=== PATIENT | female | born 1950 | race Two or more races ===

== ENCOUNTER 2025-04-01 01:15 | Emergency (ER) | payer MEDICARE, MEDICAID, SELFPAY ==
--- NOTE | 2025-04-01 01:20 | PD.EDDIZZY ---
ED Dizzyness RME/HPI General Chief Complaint: Dizziness Stated Complaint: DIZZINES, NAUSEA/VOMITING Time Seen by Provider: 04/01/25 01:38 Arrival date/time: 04/01/25 01:15 RME / HPI RME / HPI Narrative: This section includes all my notes and documentations, including HPI, PE, and ED course. Artur Quinn MD HPI: 74yo female BIBA from home here with complaints of dizziness, nausea, and vomiting for the last couple of hours. Patient describes her dizziness as spinning in nature. She does have shortness of breath. No fevers or abdominal pain. No history of similar symptoms. No other complaints reported. ROS: All negative except as documented in HPI. Physical Exam: General: Alert and oriented. Appearance of malaise noted. Eyes: Conjunctivae and lids clear. ENT: No nasal congestion. Pharynx normal. TM normal bilaterally. Neck: Supple. No carotid bruit. No JVD. Heart: RRR. Lungs: No respiratory distress. Good air movement. No rhonchi, wheezing, rales. Abdomen: Soft and nontender. Normal bowel sounds. No distension. No rebound or guarding. Back: No CVA tenderness. Skin: Warm and dry. Neuro: Alert and oriented X 3. Cranial nerves II to XII grossly normal. No peripheral motor deficits. I reviewed all diagnostic test results. My review of the CT head report is NAD. My review of the CT angio chest report is pneumonia. My review of the bilateral lower extremity venous doppler US report is right leg DVT. Blood tests remarkable for Potassium 3.2, Magnesium 1.5, BNP 269. UA remarkable for positive leukocyte esterase and 6 WBCs. COVID/Influenza negative. At this point, diagnoses include Vertigo, Pneumonia, Hypokalemia, and Hypomagnesemia. Treatment here included Scopolamine patch, Potassium, Meclizine, Zofran, NS, Magnesium, Rocephin, and Azithromycin. Significant improvement noted. Recommended outpatient management. Based on my best medical judgment, made decision no further evaluation or treatment indicated at this time. Patient understands and agrees to the discharge instructions customized and printed, see below. Discharge instructions from Dr. Quinn: ? After extensive evaluation, there is no life-threatening condition. Such as stroke or brain tumor or heart attack. -- Your diagnoses include Vertigo, Pneumonia, low potassium level, and low magnesium level. -- Your severe dizziness and vomiting is due to vertigo. This is an inner ear problem that makes you feel like you are drunk or seasick. See attached handout. -- Use scopolamine patch and/or meclizine for your severe symptoms. -- And Zofran for nausea/vomiting. And increase oral fluid to prevent dehydration. Maintain clear urine. If dark or yellow, increase oral fluid. -- And do everything very slowly. Including moving your head. And when you sit up or stand up, wait a minute before you progress. -- For pneumonia, take cefdinir and Zithromax as prescribed. -- For low potassium level, eat a banana daily. -- For low magnesium level, increase food rich in magnesium. Such as green and leafy vegetables and peanuts and cashews and almonds. -- See your private doctor on 04/05/2025 for recheck and further care. Ask to review all test results and official radiology reports, to make sure you receive all necessary follow-ups and monitoring. Ask for help until you are completely better. -- Seek immediate medical care with worsening or with any concerns. Artur Quinn MD Related Data Home Medications ?Medication ?Instructions ?Recorded ?Confirmed celecoxib PO 09/05/19 09/05/19 olmesartan PO 09/05/19 09/05/19 Previous Rx's ?Medication ?Instructions ?Recorded azithromycin 500 mg tablet See Rx Instructions PO .COMPLEX #3 09/05/19 tabs benzonatate 200 mg capsule 200 mg PO BID PRN cough #30 caps 09/05/19 ipratropium bromide 21 mcg (0.03 2 spray intranasal BID #30 mL 09/05/19 %) nasal spray loratadine 10 mg tablet (Allergy 10 mg PO QDAY allergy symptoms #30 09/05/19 Relief (loratadine)) tabs azithromycin 500 mg tablet 500 mg PO QDAY 3 days #3 tabs 04/01/25 (Zithromax TRI-CHICA) cefdinir 300 mg capsule 300 mg PO BID #14 caps 04/01/25 meclizine 25 mg tablet 25 mg PO BID PRN dizziness #20 tabs 04/01/25 ondansetron 4 mg disintegrating 4 mg PO TID PRN nausea and 04/01/25 tablet vomiting 30 days #10 tabs scopolamine base 1 mg over 3 days 1 mg topical .q72 hours PRN 04/01/25 transdermal patch (Transderm-Scop) dizziness or vertigo #4 ea Allergies Allergy/AdvReac Type Severity Reaction Status Date / Time morphine Allergy Intermediate Rash Verified 04/01/25 06:00 Review of Systems Review of Systems Systems Reviewed: All systems reviewed, normal except as documented Past Medical History Past Medical History NEUROLOGIC: Negative Neurological Disorders or Seizures CARDIAC: Positive Cardiac Disorders, Hypercholesterolemia, Edema and Hypertension; Negative Congestive Heart Failure RESPIRATORY: Negative Chronic Obstructive Pulmonary Disease (COPD) GASTROINTESTINAL: Negative Gastrointestinal Disorders GENITOURINARY: Negative Genitourinary Disorders or Renal Disease REPRODUCTIVE: Positive Previous Pregnancies MUSCULOSKELETAL: Positive Arthritis; Negative Musculoskeletal Disorders ENT: Positive Cataracts ENDOCRINE: Positive Endocrine Disorders and Diabetes Mellitus Type 2; Negative Diabetes Mellitus Type 1 HEMATOLOGIC: Positive Clotting Problems; Negative Blood Disorders OTHER HISTORY: Negative Autoimmune Disease, Blood Transfusions or Anesthesia Reactions Family History FAMILY HISTORY: Positive Family Respiratory Disorders, Family Cardiac Disorders and Family Cancer; Negative Family Psychiatric Problems, Family Gastrointestinal Problems, Family Surgery or Family Anesthesia Reaction Surgical History SURGICAL: Positive Hysterectomy; Negative Abdominal Surgery or Joint Replacement Social History SMOKING STATUS: Never smoker ED Exam Narrative Physical exam: As noted in HPI. Course Quality Measures none Orders Category Date Time Status Bedside COVID-19 Antigen Test NOW Care 04/01/25 01:23 Completed Bedside Influenza A&B Antigen Test NOW Care 04/01/25 01:[address] Screening NOW Care 04/01/25 01:25 Completed Saline [Insert IV] NOW Care 04/01/25 01:23 Completed Straight [In and Out Catheter] X1 Care 04/01/25 01:[address] angio chest Stat Exams 04/01/25 01:[address] head/brain wo con Stat Exams 04/01/25 01:25 Completed US venous doppler LE BI Stat Exams 04/01/25 01:25 Completed Amylase Stat Lab 04/01/25 01:32 Completed BNP [B-Type Natriuretic Peptide] Stat Lab 04/01/25 01:32 Completed Bilirubin,Direct Stat Lab 04/01/25 01:32 Completed CBC Stat Lab 04/01/25 01:32 Completed CMP [Comprehensive Metabolic Panel] Stat Lab 04/01/25 01:32 Completed D-Dimer Stat Lab 04/01/25 01:32 Completed Free T4 (Free Thyroxine) Stat Lab 04/01/25 01:32 Completed Lipase Stat Lab 04/01/25 01:32 Completed Magnesium Stat Lab 04/01/25 01:32 Completed PT [Prothrombin Time with INR] Stat Lab 04/01/25 01:32 Completed PTT [Partial Thromboplastin Time] Stat Lab 04/01/25 01:32 Completed TSH [Thyroid Stimulating Hormone] Stat Lab 04/01/25 01:32 Completed Troponin I Stat Lab 04/01/25 01:32 Completed UA, C/S IF [Urinalysis, C/S if Indicated] Stat Lab 04/01/25 01:45 Completed Azithromycin Po [Zithromax PO] Med 04/01/25 04:47 Discontinued 500 mg PO X1 ONE KCL 10% Liq UDC 15 ML Med 04/01/25 02:29 Discontinued 40 meq PO X1 ONE Magnesium Sulfate 2 GM Ivpb [Magnesium Sulfate Ivpb] Med 04/01/25 02:29 Discontinued 2 gm in 50 ml IV X1 Meclizine HCl [Antivert] Med 04/01/25 01:23 Discontinued 25 mg PO X1 ONE Ondansetron Inj [Zofran Inj] Med 04/01/25 01:23 Discontinued 4 mg IVP X1 ONE Scopolamine [Transderm-Scop Patch] Med 04/01/25 01:23 Discontinued 1 mg TOP X1 ONE Sodium Chloride 0.9% 1000 ml [Ns] 1,000 ml Med 04/01/25 01:23 Discontinued IV 100 mls/hr cefTRIAXone/D5w 1gm IV premix [Rocephin/D5w 1gm IV Med 04/01/25 04:47 Discontinued premix] 1 gm in 50 ml IV X1 Vital Signs Vital signs: Vital Signs Temperature 97.7 F 04/01/25 01:25 Pulse Rate 77 04/01/25 01:25 Respiratory Rate 22 H 04/01/25 01:25 Blood Pressure 166/83 H 04/01/25 01:25 Pulse Oximetry (%) 100 04/01/25 01:25 Oxygen Delivery Method Room Air 04/01/25 01:25 Dizziness MDM Narrative MDM Narrative:: 74yo female BIBA from home here with complaints of dizziness, nausea, and vomiting for the last couple of hours. Patient describes her dizziness as spinning in nature. She does have shortness of breath. No fevers or abdominal pain. No history of similar symptoms. No other complaints reported. Patient data External records reviewed:: [facility] previous records (Per chart review, patient was seen here on 05/25/24 for DVT.) and EMS form Clinical information provided by:: patient and EMS Social determinants that could affect healthcare access:: none Patient has the following chronic illnesses:: DM, HTN, HLD, DVT on Eliquis How is presenting disease/condition affected by chronic disease/condition?: uneffected by Evaluation data The following diagnostics were reviewed and interpreted by me:: lab results and radiology exam(s) Lab and/or radiology exams considered but not ordered:: none Interpretation Summary: I reviewed all diagnostic test results. My review of the CT head report is NAD. My review of the CT angio chest report is pneumonia. My review of the bilateral lower extremity venous doppler US report is right leg DVT. Blood tests remarkable for Potassium 3.2, Magnesium 1.5, BNP 269. UA remarkable for positive leukocyte esterase and 6 WBCs. COVID/Influenza negative. Medications / Prescriptions Medications or Prescriptions considered but not ordered:: none Medication administrations:: Medication Administration History Discontinued Medications Azithromycin (Azithromycin 250 Mg Tablet) 500 mg PO X1 ONE Stop: 04/01/25 04:48 Last Admin: 04/01/25 05:16 Dose: 500 mg Documented By: NAI Sodium Chloride (Ns) 1,000 mls @ 100 mls/hr IV .Q10H ONE Stop: 04/01/25 11:22 Last Infusion: 04/01/25 06:00 Dose: Infused Documented By: Admin: 04/01/25 01:45 Dose: 100 mls/hr Documented By: NAI Magnesium Sulfate (Magnesium Sulfate Ivpb) 2 gm in 50 mls @ 25 mls/hr IV X1 ONE Stop: 04/01/25 04:28 Last Infusion: 04/01/25 05:11 Dose: Infused Documented By: Admin: 04/01/25 03:05 Dose: 25 mls/hr Documented By: NAI Ceftriaxone Sodium/Dextrose (Rocephin/D5w 1gm Iv Premix) 1 gm in 50 mls @ 100 mls/hr IV X1 ONE Stop: 04/01/25 05:16 Last Infusion: 04/01/25 05:52 Dose: Infused Documented By: Admin: 04/01/25 05:16 Dose: 100 mls/hr Documented By: NAI Meclizine HCl (Meclizine Hcl 25 Mg Tablet) 25 mg PO X1 ONE Stop: 04/01/25 01:24 Last Admin: 04/01/25 01:41 Dose: 25 mg Documented By: EE Ondansetron HCl (Ondansetron Inj 2 Mg/Ml Inj 2 Ml) 4 mg IVP X1 ONE; Protocol Stop: 04/01/25 01:24 Last Admin: 04/01/25 01:42 Dose: 4 mg Documented By: EE Potassium Chloride (Potassium Chloride 10% 20 Meq/15 Ml Udc) 40 meq PO X1 ONE Stop: 04/01/25 02:30 Last Admin: 04/01/25 03:05 Dose: 40 meq Documented By: EE Scopolamine (Scopolamine 1 Mg Tdsy) 1 mg TOP X1 ONE Stop: 04/01/25 01:24 Last Admin: 04/01/25 01:41 Dose: 1 mg Documented By: EE Scopolamine, Potassium, Meclizine, Zofran, NS, Magnesium, Rocephin, Azithromycin Consultations Consultation(s) initiated? (list below): No Diagnosis Dizziness Differential Diagnosis: adverse reaction to drug, benign paroxysmal positional vertigo, orthostatic hypotension, vertebral basilar insufficiency, cerebrovascular accident, acute vestibular neuronitis and transient cerebral ischemia Most likely diagnosis given after review of the tests above:: Vertigo, Pneumonia, Hypokalemia, Hypomagnesemia Admission Indicated Admission indicated?: not indicated Explain why admission is indicated or not indicated:: With significant improvement and no condition needing emergent intervention, there was no indication for admission. Admission Request Was there a request for admission?: No Disposition Plan Disposition Plan: Discharge Discharge Attestation Discharge Attestation: The patient and all family members were given an opportunity to ask questions and understood the discharge instructions. Discharge instructions specifically effects, indications for sooner follow up or return to the emergency department, and the expected course of current diagnosis. Patient condition: Stable Discharge Plan Plan Patient Disposition: HOME (Self Care) Prescriptions/Referrals Prescriptions/Med Rec: New meclizine 25 mg tablet 25 mg PO BID PRN (Reason: dizziness) Qty: 20 0RF scopolamine base [Transderm-Scop] 1 mg over 3 days patch 3 day 1 mg topical .q72 hours PRN (Reason: dizziness or vertigo) Qty: 4 0RF ondansetron 4 mg tablet,disintegrating 4 mg PO TID PRN (Reason: nausea and vomiting) 30 Days Qty: 10 0RF cefdinir 300 mg capsule 300 mg PO BID Qty: 14 0RF azithromycin [Zithromax TRI-CHICA] 500 mg tablet 500 mg PO QDAY 3 Days Qty: 3 0RF No Action celecoxib PO olmesartan PO benzonatate 200 mg capsule 200 mg PO BID PRN (Reason: cough) Qty: 30 0RF ipratropium bromide 0.03 % spray,non-aerosol 2 spray INTRANASAL BID Qty: 30 0RF Rx Instructions: administer into each nostril; wait 30 seconds between sprays loratadine [Allergy Relief (loratadine)] 10 mg tablet 10 mg PO QDAY Qty: 30 3RF azithromycin 500 mg tablet See Rx Instructions PO .COMPLEX Qty: 3 0RF Rx Instructions: take 500 mg once daily for 3 days PO Referrals: Lawson Kim [Primary Care Provider] - In 1 week Problem List Clinical Impression: Vertigo, Pneumonia, Hypokalemia, Hypomagnesemia Patient/Caregiver Discharge Instructions Discharge Activity: activity as tolerated Education Materials: Magnesium (Blood), ED Hypokalemia, ED Pneumonia (Adult), ED Vertigo, Unspecified Additional Instructions: Discharge instructions from Dr. Quinn: ? After extensive evaluation, there is no life-threatening condition.? Such as stroke or brain tumor or heart attack. -- Your diagnoses include Vertigo, Pneumonia, low potassium level, and low magnesium level. -- Your severe dizziness and vomiting is due to vertigo.? This is an inner ear problem that makes you feel like you are drunk or seasick.? See attached handout. -- Use scopolamine patch and/or meclizine for your severe symptoms. -- And Zofran for nausea/vomiting.? And increase oral fluid to prevent dehydration.? Maintain clear urine.? If dark or yellow, increase oral fluid. -- And do everything very slowly.? Including moving your head.? And when you sit up or stand up, wait a minute before you progress.? -- For pneumonia, take cefdinir and Zithromax as prescribed. -- For low potassium level, eat a banana daily. -- For low magnesium level, increase food rich in magnesium. Such as green and leafy vegetables and peanuts and cashews and almonds. -- See your private doctor on 04/05/2025 for recheck and further care. Ask to review all test results and official radiology reports, to make sure you receive all necessary follow-ups and monitoring. Ask for help until you are completely better. -- Seek immediate medical care with worsening or with any concerns. Instrucciones de brayan del Dr. Quinn: ? Tras landen evaluaci?n exhaustiva, no se observa ninguna afecci?n potencialmente mortal, isabel un derrame cerebral, un tumor cerebral o un ataque card?aco. -- Tri diagn?sticos incluyen v?rtigo, neumon?a, niveles bajos de potasio y niveles bajos de magnesio. -- Tri mareos y v?mitos intensos se deben al v?rtigo. Se trata de un problema del o?do interno que le produce landen sensaci?n de ebriedad o mareo. Consulte el folleto adjunto. -- Use un parche de escopolamina o meclizina para los s?ntomas graves. -- Y Zofran para las n?useas y los v?mitos. Aumente la ingesta de l?quidos para prevenir la deshidrataci?n. Mantenga la orina stas. Si es oscura o amarilla, aumente la ingesta de l?quidos. -- Akira todo muy lentamente, incluyendo vice president of sales la sheeba. Al incorporarse o levantarse, espere un minuto antes de que se produzca landen progresi?n. -- Para la neumon?a, tome cefdinir y Zithromax seg?n lo prescrito. -- Si tiene un nivel bajo de potasio, coma un pl?nima al d?a. -- Si tiene un nivel bajo de magnesio, aumente el consumo de alimentos ricos en magnesio, isabel verduras de hoja roger, cacahuetes, anacardos y almendras. -- Consulte a mahmood m?dico el 05/04/2025 para landen nueva revisi?n y tratamiento. Solicite la revisi?n de todos los resultados de las pruebas y los informes radiol?gicos oficiales para asegurarse de recibir todos los controles y monitoreos necesarios. Solicite ayuda hasta que se recupere por completo. -- Busque atenci?n m?dica inmediata si mahmood condici?n empeora o tiene alguna inquietud. Print Language: Upper Sorbian Stand Alone Forms: [employer] Award Info., Patient Portal Info Letter
[2025-04-01 01:25] VITALS: BP 166/83; PULSE 64; PULSE 77; RESP 22; TEMP 36.5; O2SAT 100; O2SAT 98; BMI 30.7
--- NOTE | 2025-04-01 01:25 | XR_ITS ---
Examination: Venous duplex lower extremity sonogram, bilateral. Date and time of exam: April 01, 2025, 0151 hours INDICATIONS: Leg pain and swelling this week, history positive DVT legs Technique: Multiple sonographic images of the deep venous system have been obtained. B-mode/2-D grayscale imaging of vascular structures and Doppler spectral analysis (waveforms) and color performed Both legs are examined. Findings: Positive for deep vein thrombus involving the right proximal mid and distal superficial femoral vein, right peroneal vein Left lower extremity unremarkable IMPRESSION: Positive for significant deep vein thrombosis right lower extremity
--- NOTE | 2025-04-01 01:25 | XR_ITS ---
Examination: CTA chest with intravenous contrast 2-D reconstructions 3-D reconstructions, vascular Date and time of exam: April 01, 2025, 0336 hours INDICATIONS: Chest pain and dizziness nausea vomiting shortness of breath today CTDI: vol (mGy) 14.2 DLP: (mGycm) 552 Technique: Multiple axial sections of the thorax have been obtained. 3 mm slice thickness, from below the hemidiaphragms to above the apices of the lungs. Mediastinal and lung density settings have been obtained. 2-D sagittal and coronal reconstructions. 3-D angiographic renderings, 3-D volume renderings, 3D post processing, vascular maximum intensity projections obtained. Contrast administered is 100 cc Isovue 370 intravenous. Low dose protocols were performed. One or more of the following dose reduction techniques were used; automated exposure control, adjustment of the mA and/or KV according to patient size, use of iterative reconstruction technique. Findings: Thoracic aortic calcification no aneurysmal dilatation Pulmonary artery segments are not enlarged No pulmonary artery emboli At least 10 bilateral subcentimeter pulmonary nodules Atelectasis in the lower lung zones The liver is irregular in contour No definite gallstones No pancreatic mass Kidneys partially visualized and no hydronephrosis IMPRESSION: Negative for pulmonary artery emboli Multiple subcentimeter pulmonary nodules, recommend 3-6 month follow-up CT chest without contrast to exclude early pulmonary nodular metastatic disease Primary hepatocellular disease versus cirrhosis
--- NOTE | 2025-04-01 01:25 | XR_ITS ---
Examination: CT brain head without contrast. 2-D sagittal coronal reconstructions Date and time of exam:April 01, 2025 0334 hours INDICATIONS: Onset headache dizziness nausea vomiting today CTDI: vol (mGy):47.5 DLP: (mGycm):926 Technique: Multiple CT axial sections of the brain have been obtained, 5 mm slice thickness. Contrast has not been administered. 2-D sagittal, coronal reconstructions have been obtained Low dose protocols were performed. One or more of the following dose reduction techniques were used; automated exposure control, adjustment of the mA and/or KV according to patient size, use of iterative reconstruction technique. Findings: No significant ventricular enlargement. Intra-axial or extra-axial hemorrhage density is not seen. No mass effect or midline shift Basal cisterns are not remarkable. Fourth ventricle is midline. Cranial vault intact. Impression: Negative for acute hemorrhage, mass effect or midline shift
[2025-04-01] MEDS: SCOPOLAMINE 1 MG TDSY TOP (01:41)
[2025-04-01] MEDS: MECLIZINE HCL 25 MG TABLET PO (01:41)
[2025-04-01] MEDS: ONDANSETRON INJ 2 MG/ML INJ 2 ML 4 MG IVP (01:42)
[2025-04-01 01:43] LABS: Basophils # (Auto) 0.1 Thou/mm3 (0.0-0.2); Basophils % (Auto) 1 % (0-2.5); Eosinophils # (Auto) 0.1 Thou/mm3 (0.0-0.5); Eosinophils % (Auto) 1 % (0-10); Hematocrit 37.8 % (36.0-46.0); Hemoglobin 13.4 g/dL (12.0-16.0); Immature Granulocytes Auto 0.05 Thou/mm3 (0.00-0.00); Lymphocytes # (Auto) 1.5 Thou/mm3 (1.0-4.8); Lymphocytes % (Auto) 18 % (10-50); Mean Corpuscular HGB Conc 35.4 g/dl (31.0-37.0); Mean Corpuscular Hemoglobin 30.5 pg (25.0-35.0); Mean Corpuscular Volume 86 fL (80-100); Monocytes # (Auto) 0.4 Thou/mm3 (0.0-0.8); Monocytes % (Auto) 5 % (0-12); Neutrophils # (Auto) 6.1 Thou/mm3 (1.8-7.7); Neutrophils % (Auto) 75 % (37-80); Nucleated Red Blood Cell # 0.00 Thou/mm3 (0.00-0.00); Nucleated Red Blood Cell % 0 /100 WBC (0); Platelet Count 169 Thou/mm3 (140-440); RDW Standard Deviation 39.4 fL (36.4-46.3); Red Blood Count 4.39 Miln/mm3 (4.00-5.20); White Blood Count 8.1 Thou/mm3 (3.6-11.0)
[2025-04-01] MEDS: SODIUM CHLORIDE 0.9% 1000 ML 1,000 ML 100 ML IV (01:45)
[2025-04-01 01:51] LABS: Collection Type, Urine Clean Catch; RBC,Urine 0 /hpf (0-3)
[2025-04-01 01:56] LABS: INR 1.1 (0.9-1.3); Partial Thromboplastin Time 27.9 Seconds (22.0-36.0); Prothrombin Time 12.0 Seconds (9.0-12.2)
[2025-04-01 01:59] LABS: B-Type Natriuretic Peptide 269 pg/mL (0-100)
[2025-04-01 02:02] LABS: Alanine Aminotransferase 58 U/L (10-49); Albumin, Serum 4.3 gm/dL (3.4-4.8); Albumin/Globulin Ratio 1.3 (1.2-2.2); Alkaline Phosphatase 43 U/L (46-116); Amylase 53 U/L (30-118); Anion Gap 13 (7-16); Aspartate Amino Transferase 67 U/L (0-34); BUN/Creatinine Ratio 19 Ratio (12-20); Bilirubin,Direct 0.1 mg/dL (0.0-0.3); Bilirubin,Total 0.5 mg/dL (0.3-1.2); Blood Urea Nitrogen 15 mg/dL (9-23); Calcium 8.9 mg/dL (8.3-10.6); Calcium (Corrected) 8.9 mg/dL (8.5-10.1); Carbon Dioxide 21.0 mMol/L (20.0-31.0); Chloride 108 mMol/L (98-107); Creatinine (Component) 0.8 mg/dL (0.6-1.3); Estimated Creatinine Clearance 57.2 mL/min (>60); Free T4 (Free Thyroxine) 1.17 ng/dL (0.89-1.76); Globulin 3.3 gm/dL (2.3-3.5); Glucose 160 mg/dL (74-106); Lipase 49 U/L (12-53); Magnesium 1.5 mg/dL (1.6-2.6); Osmolality,Calculated 286 (275-295); Potassium 3.2 mMol/L (3.4-5.1); Sodium 142 mMol/L (136-145); Thyroid Stimulating Hormone 1.08 uIU/mL (0.55-4.78); Total Protein 7.6 gm/dL (5.7-8.2); Troponin I < 0.020 ng/mL (0.0-0.045); eGFR > 60 See Note
[2025-04-01 02:04] LABS: D-Dimer < 250 ng/mL (<600)
[2025-04-01 02:11] LABS: Bilirubin,Urine Negative (Negative); Blood,Urine Negative (Negative); Clarity,Urine Turbid (Clear/Hazy); Color,Urine Lt-Yellow (Lt Yel-Yel); Culture Indicated,Urine Not Indicated; Glucose, Urine Negative (Negative); Ketones,Urine 1+ (Negative); Leukocyte Esterase,Urine Positive (Negative); Nitrite,Urine Negative (Negative); PH,Urine 7.5 (5.0-7.0); Protein,Urine 1+ (Neg - Trace); Specific Gravity,Urine 1.022 (1.001-1.035); Squamous Epithelial Cell,Urine 1 /hpf (0-5); Urobilinogen,Urine Negative mg/dL (0.0-1.0); WBC,Urine 6 /hpf (0-5)
--- NOTE | 2025-04-01 02:43 | PRELIM_ITS ---
Bilateral lower extremity venous Doppler ultrasound with wave Doppler spectral analysis. April 01, 2025 0151 hours Clinical history: Edema high dimer Technique: Duplex scan of the bilateral lower extremity deep venous systems was performed utilizing 2D grayscale imaging, Doppler spectral analysis and color flow Doppler and with compression. Comparison: None. Findings: Beltre scale, color flow and spectral Doppler evaluation of the lower extremity deep veins was performed. Right: Occlusive thrombus in the superficial femoral vein. The other veins are patent. Left: The common femoral, superficial femoral and popliteal veins are patent and compressible. Normal respiratory variation is noted. There is no evidence of occlusive or nonocclusive thrombus. The great saphenous vein is patent at the level of the saphenofemoral junction. Impression: Occlusive thrombus in the right superficial femoral vein. Discussion Details: Results verbally communicated to : Dr. Quinn at 02:31 AM 04/01/2025 Report Electronically Signed By: Mert Sánchez 04/01/2025 2:42:51 AM [EST]
[2025-04-01] MEDS: Magnesium Sulfate 2 GM Ivpb 2 GM/50 ML BAG IV (03:05)
[2025-04-01] MEDS: POTASSIUM CHLORIDE 10% 20 MEQ/15 ML UDC 40 MEQ PO (03:05)
[2025-04-01 03:10] VITALS: BP 150/76; PULSE 77; RESP 18; O2SAT 98
--- NOTE | 2025-04-01 03:54 | PRELIM_ITS ---
CT scan of the head without intravenous contrast (axial sections with sagittal and coronal reformats). April 01, 2025 0334 hours Clinical History: Dizziness Comparison: None Findings: There is no intracranial hemorrhage, extra-axial collection, mass, mass-effect or midline shift. There is good mittal-white differentiation. There is no CT evidence of acute large vascular territorial infarct. Ventricles are not enlarged or effaced. Visualized paranasal sinuses and tympanomastoid cavities are clear. The bony calvarium is intact. Impression: No intracranial hemorrhage, mass-effect or midline shift. No CT evidence of acute large vascular territorial infarct. Report Electronically Signed By: Rod Grimes 04/01/2025 3:54:00 AM [EST]
--- NOTE | 2025-04-01 04:34 | PRELIM_ITS ---
CT angiogram of the chest with intravenous contrast (axial sections with sagittal and coronal reformats) April 01, 2025 at 0336 hours Clinical History: SOB. Technique:Helical axial sections with sagittal and coronal reformats of the chest were obtained with intravenous contrast. Iterative reconstruction technique was employed to reduce patient radiation exposure. 3D/MIP reconstructed images were also provided. Comparison: No prior study is available for comparison. Findings: There is no filling defect within the pulmonary artery divisions to suggest pulmonary thromboembolism. The mediastinum demonstrates no evidence of mass or lymphadenopathy. The thoracic aorta is unremarkable. There is no pericardial effusion. A few subcentimeter lung nodules, the largest in the right lower lobe measures 0.8 cm. Mild bilateral lung consolidation, atelectasis versus pneumonia. No evidence of pleural effusion or pneumothorax. Degenerative changes of the imaged portions of the spine. Chronic multilevel disc disease. No acute fractures. Vascular calcifications. Irregular liver margins. Impression: 1. No CT evidence of pulmonary thromboembolism. 2. Mild bilateral lung consolidation, atelectasis versus pneumonia. 3. Cirrhosis. 4. Indeterminate subcentimeter lung nodules. Follow-up in 3 months is recommended. Report Electronically Signed By: Mert Sánchez 04/01/2025 4:33:46 AM [EST]
[2025-04-01] MEDS: AZITHROMYCIN 250 MG TABLET 500 MG PO (05:16)
[2025-04-01] MEDS: cefTRIAXone/D5w 1gm IV premix 1 GM/50 ML BAG IV (05:16)
[2025-04-01 05:19] VITALS: BP 137/64; PULSE 72; RESP 18; TEMP 36.7; O2SAT 96
== END 2025-04-01 06:13 | disposition home or self-care (01) ==
PROVIDERS: Emergency Provider Emergency Medicine; PCP Physician Assistant
DX: J18.9 Pneumonia, unspecified organism (principal); E87.6 Hypokalemia; E83.42 Hypomagnesemia; I82.4Y1 Acute embolism and thrombosis of unspecified deep veins of right proximal lower extremity; I82.411 Acute embolism and thrombosis of right femoral vein; I82.451 Acute embolism and thrombosis of right peroneal vein; R51.9 Headache, unspecified; R11.2 Nausea with vomiting, unspecified; R42 Dizziness and giddiness; M79.605 Pain in left leg; M79.89 Other specified soft tissue disorders
CPT/HCPCS: 36415; 70450; 71275; 80053; 81001; 82150; 82248; 83690; 83735; 83880; 84439; 84443; 84484; 85025; 85379; 85610; 85730; 87400; 87811; 93970; 96361; 96365; 96366; 96375; 99284; A4649; J0696; J2405; J3475; J7030; Q9967; A9270

== ENCOUNTER → 2025-06-16 | Outpatient (CLI) | payer MEDICARE, MEDICAID, SELFPAY ==
--- NOTE | 2025-06-16 15:30 | XR_ITS ---
Examination: Screening digital mammography, bilateral Computer aided detection 3-D breast Tomosynthesis, bilateral Date and time of exam: June 16, 2025 1517 hours, compared to mammograms dating to September 03, 2019 Indication: Screening Technique: Nonmagnified MLO, CC views of the breasts to been obtained, reconstructed from 3-D Tomosynthesis images. R2 computer aided detection program utilized for evaluation of suspicious masses and/or abnormal calcifications. 3-D Tomosynthesis images obtained. Findings: Scattered areas of fibroglandular density. Right skin lesion. Benign calcifications. No interval suspicious masses Impression: BI-RADS category II: Benign Findings. Recommend 1 year follow-up mammogram.
== END | disposition home or self-care (01) ==
PROVIDERS: PCP Physician Assistant; Referring Provider Physician Assistant; Visit Provider Physician Assistant
DX: Z12.31 Encounter for screening mammogram for malignant neoplasm of breast (principal); R92.323 Mammographic fibroglandular density, bilateral breasts; R92.1 Mammographic calcification found on diagnostic imaging of breast
CPT/HCPCS: 77063; 77067